=== PATIENT | male | born 1965 | race Caucasian/White ===

== ENCOUNTER 2016-12-18 10:26 | Day surgery (SDC) | payer OTHER ==
[~2016-12-18] VITALS: Ht 175.3 cm; Wt 107.0 kg
[~2016-12-18 10:26] MED LIST: 0.9% Sodium Chloride 1,000 ML IV PRN; Sodium Chloride LOK Flush 10 mL Syringe IV PRN; fentaNYL-PF 50 mCg/mL 2 mL Inj IVPUSH PRN; marijuana
[2016-12-18 10:59] VITALS: BP 127/78; PULSE 78; RESP 16; O2SAT 95
[2016-12-18 12:10] VITALS: BP 143/82; PULSE 70; RESP 14; O2SAT 96
[2016-12-18 12:22] VITALS: BP 122/74; PULSE 73; RESP 14; O2SAT 96
[2016-12-18 12:28] VITALS: BP 129/65; PULSE 74; RESP 16; O2SAT 98
--- NOTE | 2016-12-18 14:10 | ENDO ---
[address] [address] ENDOSCOPY PROCEDURE PATIENT: CECI HERCULES : 1965 MR#: [id number] ADMIT: 12/18/2016 JOB ID: [id number] DATE OF SERVICE: 12/18/2016 PRIMARY PROVIDER: Mau Rae DO. PROCEDURE: Colonoscopy with hot snare polypectomy. INDICATIONS: A 51-year-old male with a tendency towards incomplete colon evacuation and hemorrhoidal irritation with leakage. EQUIPMENT: [id number]. SEDATION: 1. Versed 2 mg. 2. Fentanyl 50 mcg. BOWEL PREPARATION: Fair. COMPLICATIONS: None identified. PROCEDURE INFORMATION: After the risks and benefits are explained, written and verbal informed consent was obtained. The patient was brought into the endoscopy suite and placed into the left lateral decubitus position. Sedation was achieved as above. A digital rectal examination was accomplished and there was evidence of a soft, prolapsed hemorrhoid. This was easily positioned digitally back up into the anal canal. There was some slight irregularity at the very tip of the hemorrhoid. No mass lesions appreciated or palpated. The scope was introduced into the rectum and advanced under direct visualization to the level of the cecum, as identified by the appendiceal orifice and ileocecal valve. The scope was slowly withdrawn to carefully examine the mucosa for any defects or lesions. Multiple direct views were made through the dentate line for exclusion of pathology. The colon was decompressed. The scope removed from the patient who tolerated the procedure well. FINDINGS: The patient has some diverticulosis in the left colon. An approximately 9-10 mm polyp, pedunculated, at around 30 cm from the anal verge was removed with hot snare polypectomy. No other significant pathology was appreciated throughout. ENDOSCOPIC DIAGNOSES: 1. Hemorrhoids. 2. Diverticulosis. 3. Colon polyp. RECOMMENDATIONS: 1. Await histopathology. 2. Repeat colonoscopy in three years' time. 3. The patient is again encouraged to manipulate his bowel regimen to improve upon stool consistency and frequency. This should really help tremendously with his ability to remain continent. Follow up in my office on efficacy is requested for about 4-6 weeks' time. If he continues to have problems, then surgical consultation for hemorrhoidectomy may be indicated here.
--- NOTE | 2016-12-20 13:20 | PATH ---
SURGICAL PATHOLOGY Attending Physician:Lonny Thompson CASE STATUS: Signed Out PATIENT NAME: CECI HERCULES PID: [id number] : 1965 DATE COLLECTED:12/18/2016 23:36 SPECIMEN: Colon, Biopsy CLINICAL HISTORY: 1). SIGMOID COLON POLYP X1 FINAL DIAGNOSIS: 1.SIGMOID COLON POLYP: POLYPOID TUBULAR ADENOMA. ICD10 CODE D12.5 GROSS DESCRIPTION: The specimen is received in one formalin filled container labeled with the patient's name, sublabeled "sigmoid colon polyp" and consists of a 0.65 x 0.4 x 0.7 CM portion of tissue. The specimen is bisected and totally submitted in one cassette. 12/19/2016 [facility] MICRO DESCRIPTION: See diagnosis. ICD-9 CODES: CPT CODES: 1: 82221 Electronically Signed Out Tien Fishman MD [facility] Pathology [facility] [address], [place] [address] Technical component performed at [facility], [facility] [address], [place], [address]
== END 2016-12-18 23:59 | disposition home or self-care (01) ==
LOC: END 10:26
PROVIDERS: ATTEND Internal Medicine Gastroenterology
DX: D12.5 Benign neoplasm of sigmoid colon (principal); K64.9 Unspecified hemorrhoids; K57.30 Diverticulosis of large intestine without perforation or abscess without bleeding; R19.4 Change in bowel habit
CPT/HCPCS: 45385; 99153; G0500; J2250; J3010; J7030